=== PATIENT | female | born 1995 | race American Indian/Alaskan Native ===

== ENCOUNTER 2020-07-14 18:06 | Emergency (ER) | payer SELFPAY ==
[2020-07-14 18:39] VITALS: BP 113/75
[2020-07-14 19:47] LABS: Bacteria,Urine 1+ /HPF (Negative); Bilirubin,Urine NEG (Negative); Blood,Urine NEG (Negative); Color,Urine Yellow (Yellow); Mucus,Urine FEW /HPF; Urobilinogen,Urine < 2.0 mg/dL (<2.0)
[2020-07-14 19:49] LABS: WBC,Urine > 182.0 /HPF (0.0-6.0)
--- NOTE | 2020-07-14 20:42 | Emergency Department Report ---
ED Female HPI - General Chief complaint: Urogenital-Male Stated complaint: UNABLE TO URINATE Time Seen by Provider: 07/14/20 19:59 Source: patient Mode of arrival: Ambulatory Limitations: No Limitations - Related Data Previous Rx's Medication Instructions Recorded Last Taken Type Ciprofloxacin HCl 500 mg PO BID #20 tablet 07/14/20 Unknown Rx Phenazopyridine [Pyridium] 200 mg PO BID PRN #10 tab 07/14/20 Unknown Rx Allergies Allergy/AdvReac Type Severity Reaction Status Date / Time No Known Allergies Allergy Unverified 07/14/20 18:35 ED Review of Systems ROS: Stated complaint: UNABLE TO URINATE Other details as noted in HPI ED Past Medical Hx - Past Medical History Previous Medical History?: No - Surgical History Past Surgical History?: Yes - Social History Smoking Status: Never Smoker Substance Use Type: None - Medications Home Medications: Home Medications Medication Instructions Recorded Confirmed Last Taken Type Ciprofloxacin HCl 500 mg PO BID #20 tablet 07/14/20 Unknown Rx Phenazopyridine [Pyridium] 200 mg PO BID PRN #10 tab 07/14/20 Unknown Rx ED Physical Exam - General Limitations: No Limitations ED Course Vital Signs 07/14/20 07/14/20 18:37 18:39 Temperature 98.6 F Pulse Rate 86 Respiratory 20 Rate Blood Pressure 113/75 O2 Sat by Pulse 100 Oximetry Critical care attestation.: If time is entered above; I have spent that time in minutes in the direct care of this critically ill patient, excluding procedure time. ED Disposition Condition: Stable Instructions: Pyelonephritis, Adult, [id number], Urinary Tract Infection, Adult, Antibiotic Medicine, Adult Prescriptions: Ciprofloxacin HCl 500 mg PO BID #20 tablet Phenazopyridine [Pyridium] 200 mg PO BID PRN #10 tab PRN Reason: dysuria Referrals: [facility] [Provider Group] - 3-5 Days
== END 2020-07-14 21:05 | disposition home or self-care (01) ==
LOC: ED 18:06
DX: R39.198 Other difficulties with micturition (principal); Z79.899 Other long term (current) drug therapy
CPT/HCPCS: 81001

== ENCOUNTER 2020-07-30 21:02 | Emergency (ER) | payer SELFPAY ==
[2020-07-30 22:25] VITALS: BP 122/75
--- NOTE | 2020-07-30 22:42 | Emergency Department Report ---
ED Abdominal Pain HPI - General Chief Complaint: Abdominal Pain Stated Complaint: DIFFICULT URINATING Source: patient Mode of arrival: Ambulatory Limitations: No Limitations - History of Present Illness Initial Comments: pt is a 24 y/o aaf who presents for superpubic pain and dysuria x 2 weeks tx'd for UTI last week states symptoms persist, including dyspareunia, pt deneis vagi nal discharge, no concern for STI , pt is , there has been no fever or chills, no n/v MD Complaint: abdominal pain Migration to: no migration - Related Data Previous Rx's Medication Instructions Recorded Last Taken Type Ciprofloxacin HCl 500 mg PO BID #20 tablet 07/14/20 Unknown Rx Phenazopyridine [Pyridium] 200 mg PO BID PRN #10 tab 07/14/20 Unknown Rx Fluconazole (Nf) [Diflucan TAB] 150 mg PO Q3D #2 tablet 07/31/20 Unknown Rx Sulfamethoxazole/Trimethoprim 1 each PO BID 7 Days #14 tablet 07/31/20 Unknown Rx [Bactrim DS TAB] Allergies Allergy/AdvReac Type Severity Reaction Status Date / Time No Known Allergies Allergy Unverified 07/14/20 18:35 ED Review of Systems ROS: Stated complaint: DIFFICULT URINATING Other details as noted in HPI Constitutional: denies: chills, fever Eyes: denies: eye pain, eye discharge, vision change ENT: denies: ear pain, throat pain Respiratory: denies: cough, shortness of breath, wheezing Cardiovascular: denies: chest pain, palpitations Endocrine: no symptoms reported Gastrointestinal: abdominal pain. denies: nausea, vomiting Genitourinary: urgency, dysuria, dyspareunia. denies: discharge Musculoskeletal: back pain Skin: denies: rash, lesions Neurological: denies: headache, weakness, paresthesias Psychiatric: denies: anxiety, depression Hematological/Lymphatic: denies: easy bleeding, easy bruising ED Past Medical Hx - Past Medical History Previous Medical History?: No - Surgical History Past Surgical History?: No - Social History Smoking Status: Never Smoker - Medications Home Medications: Home Medications Medication Instructions Recorded Confirmed Last Taken Type Ciprofloxacin HCl 500 mg PO BID #20 tablet 07/14/20 Unknown Rx Phenazopyridine [Pyridium] 200 mg PO BID PRN #10 tab 07/14/20 Unknown Rx Fluconazole (Nf) [Diflucan TAB] 150 mg PO Q3D #2 tablet 07/31/20 Unknown Rx Sulfamethoxazole/Trimethoprim 1 each PO BID 7 Days #14 tablet 07/31/20 Unknown Rx [Bactrim DS TAB] ED Physical Exam - General Limitations: No Limitations General appearance: alert, in no apparent distress - Head Head exam: Present: atraumatic, normocephalic - Eye Eye exam: Present: normal appearance, EOMI Pupils: Present: normal accommodation - ENT ENT exam: Present: normal exam - Neck Neck exam: Present: normal inspection, full ROM. Absent: tenderness - Respiratory Respiratory exam: Present: normal lung sounds bilaterally. Absent: respiratory distress - Cardiovascular Cardiovascular Exam: Present: regular rate, normal rhythm, normal heart sounds. Absent: systolic murmur, diastolic murmur, rubs, gallop - GI/Abdominal GI/Abdominal exam: Present: soft, normal bowel sounds. Absent: distended, tenderness, guarding, rebound, rigid, bruit, hernia - Rectal Rectal exam: Present: deferred - Extremities Exam Extremities exam: Present: normal inspection - Back Exam Back exam: Present: normal inspection, full ROM. Absent: tenderness, CVA tenderness (R), CVA tenderness (L) - Neurological Exam Neurological exam: Present: alert, oriented X3, CN II-XII intact, normal gait, reflexes normal. Absent: motor sensory deficit - Psychiatric Psychiatric exam: Present: normal affect, normal mood - Skin Skin exam: Present: warm, dry, intact, normal color. Absent: rash ED Course Vital Signs 07/30/20 22:22 Temperature 98.5 F Pulse Rate 91 H Respiratory 18 Rate Blood Pressure 122/75 O2 Sat by Pulse 100 Oximetry ED Medical Decision Making - Lab Data Result diagrams: 07/30/20 23:26 07/30/20 23:26 Labs 07/30/20 07/30/20 07/30/20 23:26 23:26 Unknown WBC 5.8 RBC 4.00 Hgb 12.0 Hct 36.7 MCV 92 MCH 30 MCHC 33 RDW 12.3 L Plt Count 227 Lymph % (Auto) 26.4 [place] % (Auto) 7.9 H Eos % (Auto) 1.1 Baso % (Auto) 0.2 Lymph # (Auto) 1.5 [place] # (Auto) 0.5 Eos # (Auto) 0.1 Baso # (Auto) 0.0 Seg Neutrophils % 64.4 Seg Neutrophils # 3.8 Sodium 140 Potassium 4.4 Chloride 103.7 Carbon Dioxide 29 Anion Gap 12 BUN 15 Creatinine 1.3 H Estimated GFR > 60 BUN/Creatinine Ratio 12 Glucose 88 Calcium 9.2 Total Bilirubin 0.20 AST 14 ALT 9 Alkaline Phosphatase 92 Total Protein 6.8 Albumin 4.3 Albumin/Globulin Ratio 1.7 Urine Color Yellow Urine Turbidity Cloudy Urine pH 6.0 Ur Specific [place] 1.013 Urine Protein 100 mg/dl Urine Glucose (UA) Neg Urine Ketones Neg Urine Blood Sm Urine Nitrite Pos Urine Bilirubin Neg Urine Urobilinogen < 2.0 Ur Leukocyte Esterase Lg Urine WBC (Auto) 46.0 H Urine RBC (Auto) 8.0 U Epithel Cells (Auto) 4.0 Urine Bacteria (Auto) 1+ Hyaline Casts 4 Urine Mucus Few Urine Yeast (Budding) 2+ Urine HCG, Qual Negative - Medical Decision Making this is a UTI, will change abx, rochephin IM, diflucan po, dc to home with rx for bactrim DS follow up with [facility] in 2-3 days, pt verbalized agreement and understanding of same. Critical care attestation.: If time is entered above; I have spent that time in minutes in the direct care of this critically ill patient, excluding procedure time. ED Disposition Clinical Impression: Candidal vaginitis UTI (urinary tract infection) Qualifiers: Urinary tract infection type: acute cystitis Hematuria presence: without hematu rachelle Qualified Code(s): N30.00 - Acute cystitis without hematuria Disposition: DC-01 TO HOME OR SELFCARE Is pt being admited?: No Does the pt Need Aspirin: No Condition: Stable Instructions: Abdominal Pain (ED), Vaginal Yeast Infection, Adult, Probiotics, Urinary Tract Infection, Adult Prescriptions: Sulfamethoxazole/Trimethoprim [Bactrim DS TAB] 1 each PO BID 7 Days #14 tablet Fluconazole (Nf) [Diflucan TAB] 150 mg PO Q3D #2 tablet Referrals: PRIMARY [facility] [Primary Care Provider] - 3-5 Days DES PERDOMO MD [Staff Physician] - 3-5 Days Forms: Work/School Release Form(ED) Time of Disposition: 01:36
[2020-07-31 00:35] LABS: Basophils % (Auto) 0.2 % (0.0-1.8); Eosinophils # (Auto) 0.1 K/mm3 (0.0-0.4); Eosinophils % (Auto) 1.1 % (0.0-4.3); Hematocrit 36.7 % (30.3-42.9); Lymphocytes # (Auto) 1.5 K/mm3 (1.2-5.4); Lymphocytes % (Auto) 26.4 % (13.4-35.0); Mean Corpuscular HGB Conc 33 % (30-34); Mean Corpuscular Volume 92 fl (79-97); Monocytes # (Auto) 0.5 K/mm3 (0.0-0.8); Monocytes % (Auto) 7.9 % (0.0-7.3); Platelet Count 227 K/mm3 (140-440); Red Cell Distribution Width 12.3 % (13.2-15.2)
[2020-07-31 00:40] LABS: Alanine Aminotransferase 9 units/L (7-56); Albumin 4.3 g/dL (3.9-5); BUN/Creatinine Ratio 12; Blood Urea Nitrogen 15 mg/dL (7-17); Calcium 9.2 mg/dL (8.4-10.2); Hemolysis Index 11
[2020-07-31 01:14] LABS: Bacteria,Urine 1+ /HPF (Negative); Bilirubin,Urine NEG (Negative); Blood,Urine SM (Negative); Color,Urine Yellow (Yellow); Hyaline Casts,Urine 4 /LPF; Mucus,Urine FEW /HPF; Urobilinogen,Urine < 2.0 mg/dL (<2.0)
[2020-07-31 01:24] LABS: HCG Qualitative,Urine Negative (Negative)
[2020-07-31] MEDS ORDERED: LIDOCAINE-MPF (1%) 10 MG/1 ML VIAL 5 ML INFILTRATI ONE (01:25)
[2020-07-31] MEDS ORDERED: FLUCONAZOLE 200 MG TAB PO ONE (01:45)
== END 2020-07-31 02:30 | disposition home or self-care (01) ==
LOC: ED 21:02
DX: B37.3 Candidiasis of vulva and vagina (principal); N39.0 Urinary tract infection, site not specified; Z79.899 Other long term (current) drug therapy
CPT/HCPCS: 36415; 80053; 81001; 81025; 85025; 87086; 96372; 99283; J0696